=== PATIENT | female | born 1950 | race Caucasian/White ===

== ENCOUNTER 2021-09-04 16:24 | Emergency (ER) | payer MEDICARE ==
[2021-09-04 17:33] LABS: Bilirubin Negative (Negative); Blood, Urine Negative (Negative); Clarity Clear (Clear); Glucose, Urine (Dipstick) Normal (Negative); Ketone, Urine 10 mg/dL (Negative); Leukocyte Negative Leu/uL (Negative); Nitrite Negative (Negative); Protein, Urine (Dipstick) Negative (Neg-Trace); Specific Gravity, Urine 1.014 (1.002-1.036)
[2021-09-04 17:45] LABS: ALT (SGPT) 48 U/L (8-55); AST (SGOT) 74 U/L (5-34); Albumin 2.7 g/dL (3.4-4.8); Alkaline Phosphatase 168 U/L (40-110); Anion Gap 13 mmol/L (10-20); BUN (Urea Nitrogen) 22 mg/dL (9.8-20.1); Bilirubin, Total 0.6 mg/dL (0.2-1.2); Calc. Creatinine Clearance 0 mL/min (70-130); Calcium 8.3 mg/dL (7.8-10.44); Carbon Dioxide 24 mmol/L (23-31); Chloride 102 mmol/L (98-107); Globulin 2.6 g/dL (2.4-3.5); Glucose 92 mg/dL (80-115); Protein, Total 5.3 g/dL (5.8-8.1); Sodium 136 mmol/L (136-145)
[2021-09-04 17:50] LABS: Hemoglobin 11.1 g/dL (12.0-16.0); Mean Corpuscular HGB CONC 32.3 g/dL (32.0-36.0); Mean Corpuscular Hemoglobin 27.4 pg (27.0-31.0); Mean Corpuscular Volume 84.8 fL (78.0-98.0); Mean Platelet Volume 7.7 fL (7.4-10.4); Platelet Count 310 thou/uL (130-400); Red Blood Cell (RBC) Count 4.06 mill/uL (4.20-5.40)
[2021-09-04 18:02] LABS: Band 16 % (5-11); Lymphocytes 16 % (21-51); MDiff Complete? YES; Metamyelocyte 1 % (0-0); Monocytes 6 % (0-10); Neutrophil 58 % (42-75); Platelet Morphology Comment Appears Adequate; RBC Morphology Normal; Reactive Lymphocytes 3 % (0-10); Target Cells SLIGHT = 2-5 cells (100X) (0-1/hpf)
== END 2021-09-04 18:24 | disposition home or self-care (01) ==
LOC: ERS 16:24
DX: N39.0 Urinary tract infection, site not specified (principal); I48.91 Unspecified atrial fibrillation; D72.829 Elevated white blood cell count, unspecified; Z79.82 Long term (current) use of aspirin; Z79.899 Other long term (current) drug therapy
CPT/HCPCS: 36415; 80053; 81003; 83605; 85025; 87040; 87086; 99283